=== PATIENT | male | born 1980 | race Caucasian/White ===

== ENCOUNTER 2019-06-18 14:18 | Emergency (ER) | payer OTHER, SELFPAY ==
[2019-06-18 14:23] VITALS: BP 137/70; PULSE 57; RESP 18; TEMP 36.8; O2SAT 98
--- NOTE | 2019-06-18 15:21 | PC.NURSE ---
Patient's daughter accidentally scratched his right eye with fingernails. patient presents wearing sunglasses and reports pain in right eye. Proparicane drops applied to right eye by provider. Instant relief to eye per patient
[2019-06-18] MEDS: PROPARACAINE 0.5% OPHTH SOL 1 DROPS EYE-RIGHT (15:24)
[2019-06-18] MEDS: ERYTHROMYCIN OPHTH 1 GM OINT 1 APPLIC EYE-RIGHT (15:35)
[2019-06-18 15:51] VITALS: BP 138/83; PULSE 61; RESP 15; O2SAT 97
--- NOTE | 2019-06-18 17:48 | ED.EYEPROB ---
HPI - Eye Problem <NJ Walton - Last Filed: 06/18/19 18:03> General Chief complaint: Eye Problems Stated complaint: Thinks Scratch on Right Eye Time Seen by Provider: 06/18/19 15:03 Source: patient Mode of arrival: Ambulatory Limitations: no limitations History of Present Illness HPI Narrative: The patient is a 38-year-old male nonsmoker with history of PRK surgery who presents with a chief complaint of ?I think I scratched my eye.He states that he was playing with his daughter and his daughter nicked his eye with her name. He is worried about a corneal abrasion. His tetanus is up-to-date as he is in the . He denies any visual deficit, blurry vision, double vision, haloing of lights. He states that it hurts on the top of his eye, he does not wear any contacts at this time. 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 Related Data Previous Rx's Medication Instructions Recorded erythromycin 1 applictn EYE-RIGHT 6XD 10 Days 06/18/19 #3.5 gram Allergies Allergy/AdvReac Type Severity Reaction Status Date / Time amoxicillin Allergy Verified 06/18/19 14:25 Review of Systems <NJ Walton - Last Filed: 06/18/19 18:03> Review of Systems Narrative: GENERAL: Denies chills, fatigue, malaise, fever, sweats. HEENT: See HPI RESPIRATORY: Denies dyspnea, cough, wheezing, hemoptysis, sputum. CARDIOVASCULAR: Denies chest pain, palpitations, orthopnea, edema, GASTROINTESTINAL: Denies nausea, vomiting, abdominal pain, diarrhea, constipation, melena. : Denies dysuria, frequency, incontinence, hematuria, urinary retention. MUSCULOSKELETAL: denies weakness, joint pain, or bony pain SKIN: Denies rash, skin lesions, or other NEUROLOGIC: Denies weakness, headache, numbness, change in speech, confusion, seizures, incoordination. PSYCHIATRIC: No concerning psychosocial issues. 12 point review of systems is negative except for those stated above Patient History <NJ Walton - Last Filed: 06/18/19 18:03> Social History Smoking Status: Never smoker Exam <NJ Walton - Last Filed: 06/18/19 18:03> Narrative Exam Narrative: GENERAL: This is a well-nourished, well-developed patient, in no acute distress HEAD: Atraumatic. Normocephalic. No temporal or scalp tenderness. EYES: Pupils equal round and reactive. Extraocular motions intact. No scleral icterus. No injection or drainage. Fluorescein exam illustrate two 3 mm corneal abrasions on right eye. EOMs intact. No pain on EOMs. ENT: Nose without bleeding, purulent drainage or septal hematoma. Throat without erythema, tonsillar hypertrophy or exudate. Uvula midline. Airway patent. NECK: Trachea midline. No JVD or lymphadenopathy. Supple, nontender, no meningeal signs. CARDIOVASCULAR: Regular rate and rhythm RESPIRATORY: No cough. No increased respiratory effort. No accessory muscle use. EXTREMITIES: No clubbing, cyanosis, or edema. No joint tenderness, effusion, or edema noted. BACK: Nontender without deformity or crepitance. No flank tenderness. NEURO: AOx3. SKIN: No rash or erythema. Initial Vital Signs Initial Vital Signs: Vital Signs Temperature 98.3 F 06/18/19 14:23 Pulse Rate 57 L 06/18/19 14:23 Respiratory Rate 18 06/18/19 14:23 Blood Pressure 137/70 06/18/19 14:23 Pulse Oximetry 98 06/18/19 14:23 <Lorin Padilla MD - Last Filed: 06/18/19 18:55> Initial Vital Signs Initial Vital Signs: Vital Signs Temperature 98.3 F 06/18/19 14:23 Pulse Rate 57 L 06/18/19 14:23 Respiratory Rate 18 06/18/19 14:23 Blood Pressure 137/70 06/18/19 14:23 Pulse Oximetry 98 06/18/19 14:23 Course <MEKHI Walton-BC - Last Filed: 06/18/19 18:03> Orders Ordered: Discontinued Medications Erythromycin (Erythromycin Ophth Oint) 1 applic EYE-RIGHT NOW ONE Stop: 06/18/19 15:20 Last Admin: 06/18/19 15:35 Dose: 1 applic Documented by: FRANCESCA Proparacaine HCl (Parcaine 0.5% Ophth Lisa) 1 drops EYE-RIGHT NOW ONE Stop: 06/18/19 14:26 Last Admin: 06/18/19 15:24 Dose: 0.5 drop Documented by: FRANCESCA Vital Signs Vital signs: Vital Signs - 8 hr 06/18/19 14:23 06/18/19 15:51 Temperature 98.3 F Pulse Rate 57 L 61 Respiratory Rate 18 15 Blood Pressure 137/70 138/83 Pulse Oximetry 98 97 <Lorin Padilla MD - Last Filed: 06/18/19 18:55> Orders Ordered: Discontinued Medications Erythromycin (Erythromycin Ophth Oint) 1 applic EYE-RIGHT NOW ONE Stop: 06/18/19 15:20 Last Admin: 06/18/19 15:35 Dose: 1 applic Documented by: FRANCESCA Proparacaine HCl (Parcaine 0.5% Ophth Lisa) 1 drops EYE-RIGHT NOW ONE Stop: 06/18/19 14:26 Last Admin: 06/18/19 15:24 Dose: 0.5 drop Documented by: FRANCESCA Vital Signs Vital signs: Vital Signs - 8 hr 06/18/19 14:23 06/18/19 15:51 Temperature 98.3 F Pulse Rate 57 L 61 Respiratory Rate 18 15 Blood Pressure 137/70 138/83 Pulse Oximetry 98 97 MDM - Eye Problem <MEKHI Walton-TOMY - Last Filed: 06/18/19 18:03> MDM Narrative Medical decision making narrative: The patient is a 38-year-old male with tetanus up-to-date who presents with a chief complaint of corneal abrasion. He does have corneal abrasion on fluorescein exam. I placed him on erythromycin. Encourage PCP follow-up with the next few days. He has no red flag symptoms of visual deficit and his visual acuity was normal for him. I discussed at length coming back to emergency department for any acute concerns as suggested follow-up with primary care in a few days. Patient and have no questions or concerns upon discharge and state understanding of return precautions as well as follow-up care. Discharge Plan Departure Patient Disposition: Home Clinical Impression: Corneal abrasion Qualifiers: Encounter type: initial encounter Laterality: right Qualified Code(s): S05.01XA - Injury of conjunctiva and corneal abrasion without foreign body, right eye, initial encounter Discharge Date/Time: 06/18/19 15:51 Instructions: DI for Corneal Abrasion Activity Restrictions/Additional Instructions: Today we found a corneal abrasion. Please come back to emergency department for any acute concerns such as haloing of lights, visual deficit or any acute concerns Please follow up with primary care provider soon as possible. Prescriptions: New erythromycin 5 mg/gram (0.5 %) ointment 1 applictn EYE-RIGHT 6XD 10 Days Qty: 3.5 RF: 0 Referrals: Sadia Frazier MD [Primary Care Provider] -
== END 2019-06-18 15:51 | disposition home or self-care (01) ==
PROVIDERS: Emergency Provider Nurse Practitioner Family; PCP General Practice
DX: S05.01XA Injury of conjunctiva and corneal abrasion without foreign body, right eye, initial encounter (principal)
CPT/HCPCS: 99282; 99283